=== PATIENT | female | born 1955 | race Caucasian/White ===

== ENCOUNTER 2018-12-24 10:16 | Day surgery (SDC) | payer OTHER ==
[2018-12-23 12:12] VITALS: BMI 29.4
--- NOTE | 2018-12-23 17:53 | HP ---
HISTORY OF PRESENT ILLNESS: This is a 63-year-old female, who reports to our office for evaluation of left arm pain, numbness and tingling. She states that she started having tingling in her left arm approximately May of this year. She states that she went to the ER because she was worried she had something wrong with her heart and her blood pressure. She states that she had neck pain that moved into the back of her shoulder blade across the back of her arm to approximately her elbows. She states the back of her arms to the top of her wrist has tingling and she has had itching in the left hand. The patient has decreased sensation in the middle and some on the left. She states that she has been somewhat off balance of late as well as decreased mobility in her hand such as withdrawing. She states that a home exercise program that she had from her primary care has made the pain worse. She states that if she looks up or down or to the right, she gets numbness and tingling in the left arm, worsens. She states that Aleve helps some, but she denies physical therapy or injections. REVIEW OF SYSTEMS: A 10-point review of systems has been completed and is negative other than stated in the above HPI. PAST MEDICAL HISTORY: Skin cancer, hearing loss, nasal allergies, high cholesterol, reflux, history of anemia, and hypertension. PAST SURGICAL HISTORY: Sinus surgery, carpal tunnel, right knee, and hemorrhoids. FAMILY HISTORY: Father is of heart disease, blood pressure, diagnosed with hypertension. Mother is alive. SOCIAL HISTORY: The patient is a current smoker, uses alcohol occasionally and denies other drug use. She is . MEDICATIONS: Aleve, Ambien, lisinopril, chlordiazepoxide HCl, Flonase, and Claritin. ALLERGIES: CODEINE, VICODIN, COMPAZINE, AND THORAZINE. PHYSICAL EXAMINATION: CONSTITUTION: The patient is alert and oriented, does not appear to be in any visible distress. HEENT: Head is normocephalic and atraumatic. Pupils are equal, round, and reactive to light. Extraocular movements are intact. Hearing is intact. Moist mucous membranes. NECK: Normal, soft, supple. No masses are noted. Range of motion is intact. Painful range of range of motion, worse with flexion and extension. Tenderness in posterior spine. NEUROLOGIC: Awake, alert, and oriented x3. Memory, attention, fund of knowledge, and language are normal. Cranial nerves are grossly intact. Upper extremities 5/5 bilateral strength in deltoids, biceps, triceps, wrist extension, finger extension, finger intrinsics. Decreased sensation to light touch, left middle finger and left thumb. Reflexes are hyperreflexic bilaterally in the upper and lower extremities. Lower extremities 5/5 bilateral strength in hip flexion, knee flexion, knee extension, dorsiflexion, plantarflexion, and EHL. Equal sensation bilaterally in the lower extremities. IMAGING: MRI of cervical spine shows central herniated nucleus pulposus at C4-5, significant cord compression, C5-6 herniated disk with left foraminal stenosis. ASSESSMENT AND PLAN: Cervical stenosis with myelopathy. Dr. Rodarte has offered an ACDF C4-5. INFORMED CONSENT: We have discussed the indications, risks, benefits, alternatives, and expected results from surgery. The risks discussed include, but are not limited to, bleeding, infection, CSF leak, nerve damage, weakness, swallowing trouble, feeding tube placement, tracheal injury, esophageal injury, vocal cord injury, spinal cord injury, incontinence, paralysis, ventilator dependence, wheelchair dependence, stroke, loss of vision, carotid artery injury, jugular vein injury, hardware displacement, cardiopulmonary complications of anesthesia, or . Long-term complications discussed included, but were not limited to hardware failure and degradation of surrounding disks. The patient states she understands and is willing to proceed with surgery. Job ID: [id number]
[2018-12-24 11:23] LABS: #Basophils 0.1 thou/uL (0.0-0.2); #Eosinphils 0.1 thou/uL (0.0-0.7); #Lymphocytes 2.6 thou/uL (1.20-3.40); #Monocytes 0.5 thou/uL (0.11-0.59); #Neutrophils 4.1 thou/uL (1.40-6.50); %Basophils 0.9 % (0.0-1.0); %Eosinophils 1.3 % (0.0-10.0); %Monocytes 6.4 % (0.0-10.0); %Neutrophils 56.4 % (42.0-75.0); Hemoglobin 14.1 g/dL (12.0-16.0); Mean Corpuscular HGB CONC 32.2 g/dL (32.0-36.0); Mean Corpuscular Hemoglobin 31.7 pg (27.0-31.0); Mean Corpuscular Volume 98.6 fL (78.0-98.0); Mean Platelet Volume 9.2 fL (7.4-10.4); Platelet Count 262 thou/uL (130-400); RBC Distribution Width 12.5 % (11.5-14.5); Red Blood Cell (RBC) Count 4.44 mill/uL (4.20-5.40); White Blood Cell (WBC) Count 7.3 thou/uL (4.8-10.8)
[2018-12-24] MEDS ORDERED: CEFAZOLIN 2 GM/50 ML BAG ONE ×2 (11:23→16:33)
[2018-12-24 11:26] LABS: Prothrombin Time 13.3 SEC (12.0-14.7)
[2018-12-24 11:27] LABS: PTT 34.6 SEC (22.9-36.1)
[2018-12-24 11:47] LABS: Anion Gap 15 mmol/L (10-20); BUN (Urea Nitrogen) 11 mg/dL (9.8-20.1); Calc. Creatinine Clearance 88 mL/min (70-130); Calcium 9.9 mg/dL (7.8-10.44); Carbon Dioxide 22 mmol/L (23-31); Chloride 107 mmol/L (98-107); Estimated GFR-MDRD 74; Glucose 87 mg/dL (80-115); Potassium 4.7 mmol/L (3.5-5.1); Sodium 139 mmol/L (136-145)
[2018-12-24] MEDS ORDERED: Sodium Chloride 0.9% 20 ML ONE (11:57)
[2018-12-24] MEDS ORDERED: Thrombin 5000 UNITS/5 ML VIAL ONE (11:57)
[2018-12-24] MEDS ORDERED: Fentanyl 100 MCG/2 ML VIAL ONE ×3 (12:23→15:44)
[2018-12-24] MEDS ORDERED: Midazolam HCl 2 mg/2 ml Vial ONE (12:25)
[2018-12-24] MEDS ORDERED: Tamsulosin HCl 0.4 MG CAP ONE (15:34)
[2018-12-24] MEDS ORDERED: Dexamethasone 20 MG/5 ML VIAL ONE (15:39)
[2018-12-24] MEDS ORDERED: Ketorolac Tromethamine 30 MG/ML VIAL ONE (15:39)
[2018-12-24] MEDS ORDERED: Lidocaine 1% PF 5 ML VIAL ONE (15:39)
[2018-12-24] MEDS ORDERED: Ondansetron PF 4 MG/2 ML Vial ONE (15:39)
[2018-12-24] MEDS ORDERED: ePHEDrine/0.9% NaCl/PF SYRINGE 50 mg/10 ml ONE (15:39)
[2018-12-24] MEDS ORDERED: PHENYLEPHRINE-NS 100 MCG/ML 10 ML SYRINGE ONE (15:39)
[2018-12-24] MEDS ORDERED: Glycopyrrolate 0.2 MG/ML 5 ML SYRINGE ONE (15:39)
[2018-12-24] MEDS ORDERED: Rocuronium Bromide 10 MG/ML (10ML VIAL) ONE (15:39)
[2018-12-24] MEDS ORDERED: PROPOFOL 200 MG/20 ML VIAL ONE (15:39)
[2018-12-24] MEDS ORDERED: Esmolol 100 MG/10 ML VIAL ONE (15:39)
--- NOTE | 2018-12-24 21:09 | OP ---
DATE OF PROCEDURE: 12/24/2018 LIFE SPECIALIST: Debbie Subramanian PA-C. PREOPERATIVE INDICATION: Prevent further neurological deterioration. 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 PROCEDURE PERFORMED: Anterior cervical diskectomy, intervertebral arthrodesis, placement of intervertebral biomechanical device, anterior cervical plating at C4-C5 and C5-C6, local morselized autograft, morselized allograft, and operating microscope. PREOPERATIVE MEDICATION: Ancef 2 g IV. DRAINS: #0. DRAIN TYPE: None. DESCRIPTION OF PROCEDURE: The patient was brought to the operating room. General endotracheal anesthesia was induced. The patient was positioned on the operating table in supine with her head carefully positioned in a Gelfoam donut-shaped headrest in normal anatomic alignment. A lateral fluoro radiograph was used to plan our incision. The right side of the neck was sterilely prepped and draped. We opened the right-sided neck incision with a 10 blade knife and controlled bleeding with bipolar cautery. We dissected sharply to the platysma and cut this muscle in line with our incision. We continued our dissection medial to the sternocleidomastoid, lateral to the trachea and esophagus all the way down to the prevertebral space. We placed a marker at C4-C5 and took a lateral fluoro radiograph to confirm the levels upon which we were operating. We then elevated the longus colli muscles off the anterior surface of C4, C5, and C6 and placed a self-retaining retractor beneath them. Distraction pins were placed in C4 and C6 and we distracted across both of the intervening interspaces. The interspaces were incised with a 15 blade knife and removed disk contents using curettes and rongeurs. As we approached the posterior longitudinal ligament, the operative microscope was brought into the field. Under microscopic magnification using microsurgical techniques, we removed the remainder of the intervertebral disk. We accessed the ventral epidural space with a microcurette and then used Kerrison rongeurs to remove posterior osteophytes and posterior longitudinal ligament across the entire interspace from one nerve root to the other at C4-C5 and again at C5-C6. We then prepared the endplates for grafting using curettes. We measured the height of each interspace with a bone rasp, finding the C4-C5 interspace measuring 7 mm and measuring 6 mm. The appropriately sized PEEK intervertebral grafts were brought into the field. Osteophytes removed during our decompression were carefully cleaned of soft tissue attachments, morcellized and added to demineralized bone matrix as our fusion substrate. The substrate was packed into the PEEK intervertebral grafts and the grafts were advanced into the respective interspaces under radiographic guidance to the appropriate depth. We then removed our distraction pins and took the operative microscope out of the field. A 31 mm anterior cervical plate was brought in the field. We drilled fire pilot holes through the plate into the vertebral bodies from C4-C6 and we affixed the plate using 14 mm screws. We used fixed angle screws at C6 and variable angle screws at C4 and C5. We engaged the locking mechanism over each of the 6 screws. AP and lateral fluoro radiographs confirmed adequate position of our instrumentation. We irrigated copiously with bacitracin irrigation. Hemostasis was excellent. We closed the wound in anatomical layers and we applied a sterile dressing. This is a clean case, no contamination. Job ID: [id number]
== END 2018-12-24 19:00 | disposition home or self-care (01) ==
LOC: SDC 10:16
PROVIDERS: ATTEND Neurological Surgery
PROC: 0RG20A0 Fusion of 2 or more Cervical Vertebral Joints with Interbody Fusion Device, Anterior Approach, Anterior Column, Open Approach (ICD-10-PCS; principal; 2018-12-24)
DX: M50.021 Cervical disc disorder at C4-C5 level with myelopathy (principal); M50.121 Cervical disc disorder at C4-C5 level with radiculopathy; G95.20 Unspecified cord compression; M48.02 Spinal stenosis, cervical region; F17.200 Nicotine dependence, unspecified, uncomplicated; E78.00 Pure hypercholesterolemia, unspecified; I10 Essential (primary) hypertension; K21.9 Gastro-esophageal reflux disease without esophagitis; Z88.5 Allergy status to narcotic agent; Z88.8 Allergy status to other drugs, medicaments and biological substances; Z88.6 Allergy status to analgesic agent; Z79.82 Long term (current) use of aspirin; Z79.899 Other long term (current) drug therapy
CPT/HCPCS: 36415; 76000; 80048; 85025; 85610; 85730; 93005; 93010; C1713; C1776; J1100; J1885; J2001; J2250; J2405; J2704; J3010; J3490

== ENCOUNTER 2024-08-12 08:15 | Day surgery (SDC) | payer MEDICARE, OTHER ==
[2024-08-11 10:31] VITALS: BMI 29.2
[2024-08-12] MEDS ORDERED: AFRIN NASAL MIST 15 ML BOT ONE (08:33)
[2024-08-12 08:55] LABS: Hematocrit 38.9 % (36.0-47.0); Hemoglobin 13.1 g/dL (12.0-16.0)
[2024-08-12 09:14] LABS: Anion Gap 14 mmol/L (10-20); BUN (Urea Nitrogen) 7 mg/dL (9.8-20.1); Calc. Creatinine Clearance 75 mL/min (70-130); Calcium 9.6 mg/dL (7.8-10.44); Carbon Dioxide 23 mmol/L (23-31); Chloride 108 mmol/L (98-107); Estimated GFR 75; Glucose 88 mg/dL (80-115); Potassium 3.9 mmol/L (3.5-5.1); Sodium 141 mmol/L (136-145)
[2024-08-12] MEDS ORDERED: Thrombin 5000 UNITS/5 ML VIAL ONE (11:20)
[2024-08-12] MEDS ORDERED: EPINEPHrine 1 MG/ML VIAL ONE (11:44)
[2024-08-12] MEDS ORDERED: Lidocaine 1% (PF) 30 ML VIAL ONE (11:45)
[2024-08-12] MEDS ORDERED: PROPOFOL 20 ML ONE (12:06)
[2024-08-12] MEDS ORDERED: fentaNYL PF 100 MCG/2 ML SYRINGE ONE (12:06)
[2024-08-12] MEDS ORDERED: Ondansetron PF 4 MG/2 ML Vial ONE (12:07)
[2024-08-12] MEDS ORDERED: Dexamethasone 20 MG/5 ML VIAL ONE (12:07)
[2024-08-12] MEDS ORDERED: Lidocaine 1% PF 5 ML VIAL ONE (12:07)
[2024-08-12] MEDS ORDERED: ePHEDrine Sulfate 50 MG/10 ML VIAL ONE (12:34)
== END 2024-08-12 14:55 | disposition home or self-care (01) ==
LOC: SDC 08:15
PROVIDERS: ATTEND Specialist
PROC: 09TV8ZZ Resection of Left Ethmoid Sinus, Via Natural or Artificial Opening Endoscopic (ICD-10-PCS; principal; 2024-08-12)
PROC: 09TW8ZZ Resection of Right Sphenoid Sinus, Via Natural or Artificial Opening Endoscopic (ICD-10-PCS; 2024-08-12)
PROC: 09TX8ZZ Resection of Left Sphenoid Sinus, Via Natural or Artificial Opening Endoscopic (ICD-10-PCS; 2024-08-12)
PROC: 09TQ8ZZ Resection of Right Maxillary Sinus, Via Natural or Artificial Opening Endoscopic (ICD-10-PCS; 2024-08-12)
PROC: 09TR8ZZ Resection of Left Maxillary Sinus, Via Natural or Artificial Opening Endoscopic (ICD-10-PCS; 2024-08-12)
PROC: 09TS8ZZ Resection of Right Frontal Sinus, Via Natural or Artificial Opening Endoscopic (ICD-10-PCS; 2024-08-12)
PROC: 09TT8ZZ Resection of Left Frontal Sinus, Via Natural or Artificial Opening Endoscopic (ICD-10-PCS; 2024-08-12)
PROC: 09TU8ZZ Resection of Right Ethmoid Sinus, Via Natural or Artificial Opening Endoscopic (ICD-10-PCS; 2024-08-12)
PROC: 09TL8ZZ Resection of Nasal Turbinate, Via Natural or Artificial Opening Endoscopic (ICD-10-PCS; 2024-08-12)
DX: J32.4 Chronic pansinusitis (principal); J34.3 Hypertrophy of nasal turbinates; D64.9 Anemia, unspecified; I10 Essential (primary) hypertension; J34.89 Other specified disorders of nose and nasal sinuses; M26.602 Left temporomandibular joint disorder, unspecified; J34.2 Deviated nasal septum; Z88.8 Allergy status to other drugs, medicaments and biological substances; Z88.5 Allergy status to narcotic agent; Z79.899 Other long term (current) drug therapy
CPT/HCPCS: 30140; 31256; 31257; 31276; 61782; 80048; 85014; 85018; J0171; J1100; J2001; J2405; J2704